=== PATIENT | female | born 1995 | race Native Hawaiian/Other Pacific Islander ===

== ENCOUNTER 2021-05-29 15:07 | Emergency (ER) | payer OTHER ==
[~2021-05-29] VITALS: Ht 170.2 cm; Wt 80.7 kg
[2021-05-29 15:53] LABS: PLATELET COUNT 175 K/uL (152-353)
[2021-05-29 15:57] LABS: POTASSIUM 3.7 mmol/L (3.6-5.2)
[2021-05-29 18:35] VITALS: BP 99/34; TEMP 99.5
== END 2021-05-29 18:39 | disposition home or self-care (01) ==
LOC: ED 15:07
PROVIDERS: Emergency Medicine
DX: Z3A.34 34 weeks gestation of pregnancy (principal); U07.1 COVID-19; R10.32 Left lower quadrant pain; R10.31 Right lower quadrant pain; E83.42 Hypomagnesemia
CPT/HCPCS: 36415; 80048; 81000; 83735; 84484; 85027; 93005; 96360; 96365; 96375; 99284; J2270; J2405; J3411; J3475; J3490